=== PATIENT | female | born 1970 | race Caucasian/White ===

== ENCOUNTER 2022-10-16 11:11 | Day surgery (SDC) | payer OTHER ==
[~2022-10-16] VITALS: Ht 172.7 cm; Wt 90.7 kg
[2022-10-16] MEDS ORDERED: diphenhydrAMINE 50 MG/ML VIAL ONE (11:58)
[2022-10-16] MEDS ORDERED: fentaNYL citrate 0.05 MG/ML VIAL ONE (11:58)
[2022-10-16] MEDS ORDERED: MIDAZOLAM 2 MG/2 ML VIAL ONE (11:58)
[2022-10-16] MEDS: MIDAZOLAM 2 MG/2 ML VIAL IVP ONE (12:04)
[2022-10-16] MEDS: fentaNYL citrate 0.05 MG/ML VIAL IVP ONE (12:05)
[2022-10-16] MEDS: LIDOCAINE 2% 100 MG/5 ML UJET TP ONE (12:06)
[2022-10-16] MEDS: diphenhydrAMINE 50 MG/ML VIAL IVP ONE (12:10)
== END 2022-10-16 13:29 | disposition home or self-care (01) ==
LOC: MDS 11:11 → MMU 11:11 → MDS 13:29
PROVIDERS: ATTEND Internal Medicine Gastroenterology
DX: R19.5 Other fecal abnormalities (principal); D12.4 Benign neoplasm of descending colon; F17.210 Nicotine dependence, cigarettes, uncomplicated; K21.9 Gastro-esophageal reflux disease without esophagitis; I10 Essential (primary) hypertension; Z79.899 Other long term (current) drug therapy; Z20.822 Contact with and (suspected) exposure to COVID-19
CPT/HCPCS: 45385; 87426; J1200; J2250; J3010